=== PATIENT | female | born 1965 | race African-American/Black ===

== ENCOUNTER 2021-08-06 19:23 | Emergency (ER) | payer MEDICAID ==
[~2021-08-06] VITALS: Ht 165.1 cm; Wt 80.0 kg
[2021-08-06] MEDS ORDERED: LIDOCAINE HCL 1% 10 MG/ML 10ML VIAL IJ SCH (21:52)
[2021-08-06] MEDS ORDERED: ACETAMINOPHEN 500MG TABLET PO ONE (22:00)
[2021-08-06] MEDS ORDERED: TETANUS, DIPHTHERIA, PERTUSSIS VAC/PF 0.5ML (>10YR OLD) IM ONE (22:00)
[2021-08-06] MEDS ORDERED: LIDOCAINE HCL 1% 20ML VIAL (Pyxis) INJ INFIL ONE (22:00)
[2021-08-06] MEDS ORDERED: HYDROCODONE/ACETAMINOPHEN 5/325MG TABLET PO ONE (22:45)
[2021-08-06] MEDS ORDERED: ACET-2708 MT (22:53)
[2021-08-06] MEDS ORDERED: IBUP-2030 MT (22:53)
[2021-08-06 23:46] VITALS: BP 128/66
[2021-08-07] MEDS ORDERED: BACITRACIN 15GM TUBE TOP ONE
== END 2021-08-07 00:14 | disposition home or self-care (01) ==
LOC: ER 19:42
DX: S61.217D Laceration without foreign body of left little finger without damage to nail, subsequent encounter (principal); X58.XXXD Exposure to other specified factors, subsequent encounter; J44.9 Chronic obstructive pulmonary disease, unspecified; Z98.890 Other specified postprocedural states
CPT/HCPCS: 12001; 90471; 90715; 99283; J3490; Z7610